=== PATIENT | female | born 1945 | race Two or more races ===

== ENCOUNTER → 2018-09-27 | Day surgery (SDC) | payer OTHER ==
[~2018-09-27] VITALS: Ht 165.1 cm; Wt 76.2 kg
[2018-09-27 09:43] VITALS: BP 129/78
[2018-09-27 14:33] VITALS: BP 102/63
== END | disposition home or self-care (01) ==
LOC: OR 09:08 → GI 12:30
DX: R19.5 Other fecal abnormalities (principal); K63.89 Other specified diseases of intestine; E78.00 Pure hypercholesterolemia, unspecified; M19.011 Primary osteoarthritis, right shoulder; M19.012 Primary osteoarthritis, left shoulder; E11.9 Type 2 diabetes mellitus without complications; Z86.010 Personal history of colon polyps; Z98.890 Other specified postprocedural states; Z79.84 Long term (current) use of oral hypoglycemic drugs; Z79.899 Other long term (current) drug therapy; Z80.0 Family history of malignant neoplasm of digestive organs; Z98.41 Cataract extraction status, right eye; Z90.710 Acquired absence of both cervix and uterus
CPT/HCPCS: 45378; J1200; J1610; J2250; J2310; J3010; J3490; Q0092